=== PATIENT | female | born 1955 | race Caucasian/White ===

== ENCOUNTER 2020-08-12 18:06 | Emergency (ER) | payer SELFPAY ==
--- NOTE | 2020-08-12 18:51 | EDM.PDOC ---
ED HPI GENERAL MEDICAL PROBLEM - General Chief Complaint: Upper Extremity Injury/Pain Stated Complaint: SLIPPED ON ICE HURT RIGHT WRIST Time Seen by Provider: 08/12/20 18:49 Source of Information: Reports: Patient, RN Notes Reviewed History Limitations: Reports: No Limitations - History of Present Illness INITIAL COMMENTS - FREE TEXT/NARRATIVE: 65-year-old female presents emergency department today following a fall where she slipped on ice she had a fall on outstretched hand right side now has obvious deformity on her right wrist Right Wrist Pain Score (Numeric/FACES): 6 - Related Data Allergies Allergy/AdvReac Type Severity Reaction Status Date / Time No Known Allergies Allergy Verified 08/12/20 18:16 Home Meds: Home Meds Progesterone, Micronized [Progesterone] 300 mg PO DAILY 08/15/16 [History] Thyroid [[place] Thyroid] 45 mg PO DAILY 08/15/16 [History] Past Medical History HEENT History: Reports: Impaired Vision Other HEENT History: wears glasses Cardiovascular History: Reports: Heart Murmur Musculoskeletal History: Reports: Fracture, Gout, Osteoporosis Endocrine/Metabolic History: Reports: Hypothyroidism, Obesity/BMI 30+, Osteoporosis - Infectious Disease History Infectious Disease History: Reports: Chicken Pox, Measles, Mumps - Past Surgical History HEENT Surgical History: Reports: LASIK Endocrine Surgical History: Reports: None Musculoskeletal Surgical History: Reports: Other (See Below) Other Musculoskeletal Surgeries/Procedures:: finger surgery Social & Family History - Family History Family Medical History: No Pertinent Family History - Tobacco Use Tobacco Use Status *Q: Never Tobacco User - Caffeine Use Caffeine Use: Reports: None - Recreational Drug Use Recreational Drug Use: No Review of Systems - Review of Systems Review Of Systems: See Below Constitutional: Reports: No Symptoms Musculoskeletal: Reports: Foot Pain (Wrist pain) ED EXAM, GENERAL - Physical Exam Exam: See Below Free Text/Narrative:: Examination of the right wrist there is no obvious deformity radial pulses +2 she has limited range of motion of digits however good capillary refill ED TRAUMA EXTREMITY PROCEDURES - Joint Reduction Right Wrist Sedation: Conscious Sedation Pre-Procedure NV Status: Normal Post-Procedure NV Status: Normal Technique: Traction/Counter Traction Number of Attempts: 2 Post-Reduction Imaging: Completely Reduced Joint Reduction Complications: No - Splinting Right Upper Extremity Pre-Procedure NV Status: Normal Post-Procedure NV Status: Normal Splint Material: Fiberglass Splint Design: Sugar Tong, Gutter, Sling Applied & Form Fitted By: Provider, Nurse Provider Post-Splint Application NV Check: NV Status Normal Complications: No Course - Vital Signs Last Recorded V/S: Last Vital Signs Temp 96.1 F L 08/12/20 18:17 Pulse 77 08/12/20 19:45 Resp 16 08/12/20 18:17 BP 147/79 H 08/12/20 19:45 Pulse Ox 100 08/12/20 19:45 - Orders/Labs/Meds Orders: Active Orders 24 hr Category Date Time Status Wrist 2V Rt [CR] Stat Exams 08/12/20 20:20 Taken Wrist Comp Min 3V Rt [CR] Stat Exams 08/12/20 18:20 Taken Meds: Medications Discontinued Medications Generic Name Dose Route Start Last Admin Trade Name Freq PRN Reason Stop Dose Admin Ketorolac Tromethamine 30 mg 08/12/20 19:41 08/12/20 20:47 Toradol IVPUSH 08/12/20 19:42 30 mg ONETIME ONE Administration Propofol Confirm 08/12/20 20:37 Diprivan 20 Ml Administered 08/12/20 20:38 Dose 200 mg .ROUTE .STK-MED ONE Departure - Departure Time of Disposition: 21:04 Disposition: Home, Self-Care 01 Condition: Fair Clinical Impression: Fracture of radius, right, closed Qualifiers: Encounter type: initial encounter Radius location: head Fracture alignment: displaced Qualified Code(s): S52.121A - Displaced fracture of head of right radius, initial encounter for closed fracture - Discharge Information Instructions: Monitored Anesthesia Care, Care After, Wrist Fracture Treated With Immobilization, [id number] Referrals: PCP,None [Primary Care Provider] - Forms: ED Department Discharge Additional Instructions: Please call to the orthopedic clinic on Friday for an appointment time with Dr. Nava use ibuprofen or Tylenol for baseline pain control use hydrocodone for breakthrough pain this does have additional Tylenol in it so be mindful not to exceed 4000 mg in a 24-hour., Call or return to the emergency department worsening of symptoms Sepsis Event Note (ED) - Evaluation Sepsis Screening Result: No Definite Risk - Focused Exam Vital Signs: Vital Signs Temp Pulse Resp BP Pulse Ox 08/12/20 19:45 77 147/79 H 100 08/12/20 18:45 81 141/82 H 08/12/20 18:17 96.1 F L 80 16 139/82 99 - My Orders Last 24 Hours: My Active Orders 08/12/20 18:20 Wrist Comp Min 3V Rt [CR] Stat 08/12/20 20:20 Wrist 2V Rt [CR] Stat - Assessment/Plan Last 24 Hours: My Active Orders 08/12/20 18:20 Wrist Comp Min 3V Rt [CR] Stat 08/12/20 20:20 Wrist 2V Rt [CR] Stat Plan: Assessment Acuity = acute Site and laterality = fracture radius right closed and dislocation Etiology = fall on outstretched hand Manifestations = none Location of injury = Home Lab values = x-ray describes fracture and dislocation with post reduction films Plan Call discussed case with Dr. Nava at 1852 recommended reduction splinting follow-up in clinic next week, prescription written for hydrocodone 5/325 1 tab p.o. 3 times daily as needed total number six 1 tablet every 4-6 hours as needed This note was dictated using GIDEEN voice recognition software please call with any questions on syntax or grammar.
[2020-08-12] MEDS ORDERED: Ketorolac 30 MG/ML SDV IVPUSH ONE (19:41)
[2020-08-12 19:46] VITALS: BP 147/79; PULSE 77
[2020-08-12] MEDS ORDERED: Propofol 200 MG/20 ML SDV ONE (20:37)
--- NOTE | 2020-08-14 09:48 | CR ---
Wrist Comp Min 3V Rt, Wrist 2V Rt CLINICAL HISTORY: Pain, fall FINDINGS: There is a comminuted displaced to fracture the distal radius. There is ulnar impaction in the carpal bones. IMPRESSION: Comminuted displaced fracture of the distal radius Ulnar impaction in the carpal bones Wrist 2V Rt CLINICAL HISTORY: Postreduction FINDINGS: There has been no reduction of the distal comminuted radial fracture seen in this single view. There may be some subluxation of the triquetrum. Some of this may be positioning IMPRESSION: Limited study Postreduction distal radial fracture Possible subluxation of the triquetrum
== END 2020-08-12 22:33 | disposition home or self-care (01) ==
LOC: JP.ED 18:06
DX: S52.121A Displaced fracture of head of right radius, initial encounter for closed fracture (principal); S52.501A Unspecified fracture of the lower end of right radius, initial encounter for closed fracture; E03.9 Hypothyroidism, unspecified; E66.9 Obesity, unspecified; Z68.29 Body mass index [BMI] 29.0-29.9, adult; Z79.899 Other long term (current) drug therapy; W00.0XXA Fall on same level due to ice and snow, initial encounter
CPT/HCPCS: 25500; 25605; 73100; 73110; 96374; 99283; J1885; J2704

== ENCOUNTER 2021-02-21 13:54 | Inpatient (IN) | payer SELFPAY ==
[2021-02-21] MEDS ORDERED: Midazolam 1 MG/ML 2 ML SDV ONE ×2 (14:24→15:49)
[2021-02-21] MEDS ORDERED: Propofol 200 MG/20 ML SDV ONE (14:24)
[2021-02-21] MEDS ORDERED: fentaNYL 100 MCG/2 ML SDV ONE (14:24)
[2021-02-21] MEDS ORDERED: Bupivacaine 0.5%/EPINEPHrine 1:200,000 50 ML MDV ONE (14:26)
[2021-02-21] MEDS ORDERED: ceFAZolin 1 GM in Premix Bag 1 BAG IV ONE (14:30)
[2021-02-21] MEDS ORDERED: Lactated Ringers 1,000 ML IV ONE (14:47)
[2021-02-21 15:15] LABS: CORONAVIRUS COVID-19 NAA NEGATIVE (NEGATIVE)
[2021-02-21] MEDS ORDERED: Acetaminophen 325 MG Tab PO PRN (16:34)
[2021-02-21] MEDS ORDERED: Ondansetron 4 MG/2 ML SDV IVPUSH PRN (16:34)
[2021-02-21] MEDS ORDERED: Morphine 2 MG/ML SYRINGE IV PRN (16:34)
[2021-02-21] MEDS ORDERED: Acetaminophen/HYDROcodone 325-5 MG Tab PO PRN (16:34)
[2021-02-21] MEDS ORDERED: Acetaminophen/oxyCODONE 325-5 MG Tab PO PRN (16:39)
[2021-02-21] MEDS ORDERED: Sodium Chloride 0.9% 1,000 ML IV SCH (16:45)
[2021-02-21] MEDS ORDERED: PROGESTERONE MICRONIZED 100 MG PO SCH (21:00)
[2021-02-21] MEDS: Docusate Sodium 100 MG Cap PO SCH (22:23)
[2021-02-21] MEDS: Nozin Nasal Sanitizer NASBOTH SCH (22:36)
[2021-02-21] MEDS: ceFAZolin 1 GM in Premix Bag 1 BAG IV SCH (22:44)
[2021-02-21] MEDS: Ketorolac 30 MG/ML SDV IVPUSH PRN (22:54)
[2021-02-22] MEDS: ceFAZolin 1 GM in Premix Bag 1 BAG IV SCH ×2 (05:54→14:11)
[2021-02-22] MEDS ORDERED: Enoxaparin 30 MG/0.3 ML Syringe SUBCUT SCH (09:00)
[2021-02-22] MEDS: Docusate Sodium 100 MG Cap PO SCH (09:30)
[2021-02-22] MEDS: Nozin Nasal Sanitizer NASBOTH SCH (09:38)
[2021-02-22] MEDS: Ketorolac 30 MG/ML SDV IVPUSH PRN (11:30)
[2021-02-22 11:41] VITALS: BP 101/67; PULSE 72
--- NOTE | 2021-02-22 14:53 | PCM.DCSUM1 ---
Discharge Summary - Hospital Course HPI Initial Comments: Patient is a 65 y/o female, had ongoing L hip pain over the past month. Was seen in [place] and got an US to rule out a hernia. A different provider told her she had a musculoskeletal strain. Had been doing some therapy, but pain was not getting any better. Eventually sought another opinion with Dr. Bergeron yesterday, who got an xray which revealed a femoral neck stress fracture. Patient advised to go to [facility] for surgical fixation. However, patient has seen Dr. Nava in the past for R wrist fracture and preferred to be treated here. She arrived in waiting room of our clinic yesterday afternoon requesting Dr. Nava's service. Fracture was corrected yesterday afternoon with surgical management via 3 cannulated screws in L hip. Patient stayed overnight for pain control, therapy, and antibiotic coverage. Is doing well today and plans to discharge home this evening. Diagnosis: Stroke: No Modified [place] Scale: No Symptoms at All Modified Eric Scale Score: 0 - Discharge Data Discharge Date: 02/22/21 Discharge Disposition: Home, Self-Care 01 Condition: Good - Referral to Home Health Date of Face to Face Encounter: 02/22/21 Primary Care Physician: PCP None - Patient Summary/Data Operative Procedure(s) Performed: left hip ORIF with 3 cannulated screws Consults: Consultations 02/21/21 16:34 PT Evaluation and Treatment [CONS] Routine Please Evaluate and Treat. PT Reason for Consult: Ambulation Discharge Disposition: Home w Home Health Special Instructions: WBAT on LLE This query below is only for informational purposes and is not editable. PT Evaluation and Treatment [CONS] Routine Please Evaluate and Treat. PT Reason for Consult: Post op Ortho Surgery Hip Pending Discharge: Yes, 2- -3 days Special Instructions: Schedule first outpatient P.T. appointment 3 - 5 days post discharge This query below is only for informational purposes and is not editable. 02/21/21 16:37 OT Evaluation and Treatment [CONS] Routine Please Evaluate and Treat. OT Reason for Consult: ADL's Special Instructions: Status post Hip Surgery This query below is only for informational purposes and is not editable. Hospital Course: Patient is a pleasant 65 y/o female, presented to ortho clinic waiting room with xrays from outside facility showing a femoral neck fracture. Dr. Bergeron suggested she go to [place] for surgical fixation, but patient was seen by Dr. Nava for a right wrist fracture this past winter and preferred to have surgical management here. Patient had pain in left leg for the past month, but pushed through the pain and resumed normal activities. Has been weight bearing, jumping on her mini-trampoline, and spending some time on the inversion table. Patient has PMHx significant for osteoporosis. Had R wrist fracture late last year and presents now with left femoral neck stress fracture. Patient reports she is planning to get a repeat DEXA scan this fall. Has been trying natural remedies and supplements to improve her osteoporosis, including an Algae supplement. Does use vitamin D and Collagen powder. Xrays were pushed to our PACs system and reviewed. Dr. Nava recommended surgical fixation. Patient underwent a left hip ORIF repair with 3 cannulated screws on 02/21/21. Tolerated surgery well with no complications. Had no acute events overnight. Remained hemodynamically stable throughout her stay. Patient was a bit dehydrated from a 13-day master cleanse. Blood pressures have been running on the low side, but denied dizziness, fatigue, nor lightheadedness. POD#1 HgB at 11.2. Patient has been asymptomatic with this as well. Pain has been well controlled throughout hospital stay with [place] and Toradol. Patient denied nausea or emesis. Has only been eating clear liquids and oranges coming off her master cleanse, but tolerating this diet well. Patient participated in PT and OT while in the hospital. Patient has been ambulating up to 100 ft with FWW independently. Demonstrates appropriate gait pattern. Is able to transfer independently from chair to bed. Bilateral LE exercises performed, handouts with these exercises were provided to patient. Worked with OT, demonstrated ability to complete ADLs with minimal assistance. Does have son staying with her upon discharge from hospital. Exam: Ambulatory with mild antalgic gait with FWW. Left hip dressing dry and intact. No surrounding erythema, drainage, nor warmth to touch of left hip. Mild ecchymosis present along anterior and lateral left thigh. No significant edema of L LE. Left calf is soft and supple. Tibialis posterior, 2+. Dorsiflexion: 4+/5. Plantar flexion: 5/5. - Patient Instructions Diet: Usual Diet as Tolerated Activity: Apply Ice, Full Weight Bearing Driving: Do Not Drive Showering/Bathing: Shower in AM Wound/Incision Care: Keep Operative Site/Wound Site Clean and Dry Notify Provider of: Fever, Increased Pain, Swelling and Redness, Drainage - Discharge Plan *PRESCRIPTION DRUG MONITORING PROGRAM REVIEWED*: Not Applicable *COPY OF PRESCRIPTION DRUG MONITORING REPORT IN PATIENT IVORY: Not Applicable Home Medications: Home Meds Progesterone,Micronized [Prometrium] 300 mg PO BEDTIME 11/02/20 [History] Thyroid,Pork [[employer] Thyroid] 60 mg PO DAILY 11/02/20 [History] Aspirin 1 BID 02/22/21 [History] Oxygen Therapy Mode: Room Air Patient Handouts: Hip Fracture Treated With ORIF, Care After, Preventing Problems After Surgery, Preventing Constipation After Surgery Referrals: Evens Nava MD [Physician] - 03/08/21 2:30 pm - Discharge Summary/Plan Comment DC Time >30 min.: No Discharge Summary/Plan Comment: * Anticipate discharge to home today, son will be staying with patient upon discharge. * Education provided to patient on warning signs of SSIs and DVT/VTEs. Patient expressed understanding of return precautions. * Educated to take 1 aspirin BID for DVT/VTE prophylaxis. * Patient refused pain medication upon discharge, notes she will use her ibuprofen at home if she needs it. If she gets home and decides she needs something stronger, will call clinic. Advised that we do not refill pain medications after noon on Friday, so she will need to call prior if she needs pain medication over the weekend. * Physical therapy order faxed to [facility] for L LE, patient is currently working with [facility] (DPT) for R wrist and would like to do L LE therapy there. * Patient may continue to WBAT on LLE with walker for support. * Patient to follow up with orthopedics in 2 weeks. Encouraged to call sooner if any questions or concerns arise. Patient expressed understanding. - General Info Functional Status: Reports: Pain Controlled, Tolerating Diet, Ambulating (with FWW ), Urinating - Review of Systems General: Reports: No Symptoms HEENT: Reports: Post Nasal Drip, Rhinitis Pulmonary: Reports: No Symptoms Cardiovascular: Reports: No Symptoms Gastrointestinal: Reports: No Symptoms Genitourinary: Reports: No Symptoms Musculoskeletal: Reports: Hand Pain (R wrist ), Leg Pain (L ), Joint Pain (L hip ) Skin: Reports: Bruising (Ecchymosis along anterior and lateral left thigh) Neurological: Reports: No Symptoms Psychiatric: Reports: No Symptoms - Patient Data Vitals - Most Recent: Last Vital Signs Temp 98.1 F 02/22/21 11:40 Pulse 72 02/22/21 11:40 Resp 16 02/22/21 11:40 BP 101/67 02/22/21 11:40 Pulse Ox 99 02/22/21 11:40 Weight - Most Recent: 166 lb I&O - Last 24 hours: Intake & Output 02/21/21 02/22/21 02/22/21 22:59 06:59 14:59 Intake Total 1125 1784 240 Balance 1125 1784 240 Lab Results - Last 24 hrs: Laboratory Results - last 24 hr 02/21/21 02/21/21 02/21/21 Range/Units 14:25 14:33 14:33 WBC 3.4 L (4.5-11.0) K/uL RBC 4.35 (3.30-5.50) M/uL Hgb 14.3 (12.0-15.0) g/dL Hct 41.4 (36.0-48.0) % MCV 95 (80-98) fL MCH 33 H (27-31) pg MCHC 35 (32-36) % Plt Count 261 (150-400) K/uL Neut % (Auto) 54.3 (36-66) % Lymph % (Auto) 33.0 (24-44) % [place] % (Auto) 11.2 H (2-6) % Eos % (Auto) 0.6 L (2-4) % Baso % (Auto) 0.9 (0-1) % Sodium 140 (140-148) mmol/L Potassium 3.7 (3.6-5.2) mmol/L Chloride 102 (100-108) mmol/L Carbon Dioxide 23 (21-32) mmol/L Anion Gap 14.8 H (5.0-14.0) mmol/L BUN 2 L (7-18) mg/dL Creatinine 0.8 (0.6-1.0) mg/dL Est Cr Clr Drug Dosing 56.93 mL/min Estimated GFR (MDRD) > 60 (>60) Glucose 95 (74-106) mg/dL Calcium 9.4 (8.5-10.1) mg/dL Influenza Type A RNA Negative (NEGATIVE) RSV RNA (INAAT) Negative (NEGATIVE) Influenza Type B RNA Negative (NEGATIVE) SARS-CoV-2 RNA (ELIZABETH) Negative (NEGATIVE) 02/22/21 Range/Units 05:13 WBC 4.5 (4.5-11.0) K/uL RBC 3.47 (3.30-5.50) M/uL Hgb 11.2 L D (12.0-15.0) g/dL Hct 34.2 L (36.0-48.0) % MCV 99 H (80-98) fL MCH 32 H (27-31) pg MCHC 33 (32-36) % Plt Count 228 (150-400) K/uL Neut % (Auto) (36-66) % Lymph % (Auto) (24-44) % [place] % (Auto) (2-6) % Eos % (Auto) (2-4) % Baso % (Auto) (0-1) % Sodium (140-148) mmol/L Potassium (3.6-5.2) mmol/L Chloride (100-108) mmol/L Carbon Dioxide (21-32) mmol/L Anion Gap (5.0-14.0) mmol/L BUN (7-18) mg/dL Creatinine (0.6-1.0) mg/dL Est Cr Clr Drug Dosing mL/min Estimated GFR (MDRD) (>60) Glucose (74-106) mg/dL Calcium (8.5-10.1) mg/dL Influenza Type A RNA (NEGATIVE) RSV RNA (INAAT) (NEGATIVE) Influenza Type B RNA (NEGATIVE) SARS-CoV-2 RNA (ELIZABETH) (NEGATIVE) Med Orders - Current: Current Medications Acetaminophen (Acetaminophen 325 Mg Tab) 650 mg PO Q4H PRN PRN Reason: Pain/Fever Hydrocodone Bitart/Acetaminophen (Acetaminophen/Hydrocodone 325-5 Mg Tab) 1 tab PO Q4H PRN PRN Reason: Pain (mild 1-3) Last Admin: 02/21/21 20:49 Dose: 1 tab Documented by: Bandage/Support Products (Nozin Nasal Manager Route) 1 applic NASBOTH BID MARTHA Stop: 02/28/21 21:01 Last Admin: 02/22/21 09:38 Dose: 1 applic Documented by: Docusate Sodium (Docusate Sodium 100 Mg Cap) 100 mg PO BID [facility] Last Admin: 02/22/21 09:30 Dose: Not Given Documented by: Enoxaparin Sodium (Enoxaparin 30 Mg/0.3 Ml Syringe) 30 mg SUBCUT DAILY [facility] Last Admin: 02/22/21 09:37 Dose: 30 mg Documented by: Sodium Chloride (Normal Saline) 1,000 mls @ 125 mls/hr IV ASDIRECTED [facility] Last Admin: 02/21/21 23:46 Dose: 125 mls/hr Documented by: Ketorolac Tromethamine (Ketorolac 30 Mg/Ml Sdv) 30 mg IVPUSH Q8H PRN PRN Reason: Breakthrough Pain Stop: 02/26/21 16:41 Last Admin: 02/22/21 11:30 Dose: 30 mg Documented by: Morphine Sulfate (Morphine 2 Mg/Ml Syringe) 1 mg IV Q1H PRN PRN Reason: Breakthrough Pain Non-Formulary Medication (Progesterone,Micronized [Prometrium]) 300 mg PO BEDTIME [facility] Ondansetron HCl (Ondansetron 4 Mg/2 Ml Sdv) 4 mg IVPUSH Q6H PRN PRN Reason: Nausea/Vomiting Oxycodone/Acetaminophen (Acetaminophen/Oxycodone 325-5 Mg Tab) 1 - 2 tab PO Q4H PRN PRN Reason: Pain Discontinued Medications Bupivacaine HCl/Epinephrine Bitart (Bupivacaine 0.5%/Epinephrine 1:200,000 50 Ml Mdv) Confirm Administered Dose 50 ml .ROUTE .STK-MED ONE Stop: 02/21/21 14:27 Last Admin: 02/21/21 16:23 Dose: 20 ml Documented by: Fentanyl (Fentanyl 100 Mcg/2 Ml Sdv) Confirm Administered Dose 100 mcg .ROUTE .STK-MED ONE Stop: 02/21/21 14:25 Cefazolin Sodium/Dextrose 1 gm (/ Premix) 50 mls @ 100 mls/hr IV ONETIME ONE Stop: 02/21/21 14:59 Last Admin: 02/21/21 14:49 Dose: 100 mls/hr Documented by: Lactated Ringer's (Ringers, Lactated) 1,000 mls @ 999 mls/hr IV BOLUS ONE Stop: 02/21/21 15:47 Last Admin: 02/21/21 14:53 Dose: 999 mls/hr Documented by: Cefazolin Sodium/Dextrose 1 gm (/ Premix) 50 mls @ 200 mls/hr IV Q8H [facility] Stop: 02/22/21 14:14 Last Admin: 02/22/21 14:11 Dose: 200 mls/hr Documented by: Midazolam HCl (Midazolam 1 Mg/Ml 2 Ml Sdv) Confirm Administered Dose 2 mg .ROUTE .STK-MED ONE Stop: 02/21/21 14:25 Midazolam HCl (Midazolam 1 Mg/Ml 2 Ml Sdv) Confirm Administered Dose 2 mg .ROUTE .STK-MED ONE Stop: 02/21/21 15:50 Propofol (Propofol 200 Mg/20 Ml Sdv) Confirm Administered Dose 200 mg .ROUTE .STK-MED ONE Stop: 02/21/21 14:25 - Exam General: Reports: Alert, Oriented, Cooperative, No Acute Distress Extremities: Normal Capillary Refill, Joint Swelling, Leg Pain Skin: Reports: Dry, Intact Wound/Incisions: Reports: Dressing Dry and Intact, No Drainage Neurological: Reports: No New Focal Deficit Psy/Mental Status: Reports: Alert, Normal Affect, Normal Mood
--- NOTE | 2021-03-07 20:14 | OR ---
DATE OF PROCEDURE: 02/21/2021 SURGEON: Evens Nava MD PREOPERATIVE DIAGNOSIS: Nondisplaced left femoral neck fracture, pathologic, secondary to osteoporosis. POSTOPERATIVE DIAGNOSIS: Nondisplaced left femoral neck fracture, pathologic, secondary to osteoporosis. PROCEDURE PERFORMED: Cannulated screw fixation of left femoral neck fracture. ANESTHESIA: Spinal with sedation. INDICATIONS: Lucia is a 65-year-old female who has been having left hip pain for the past few weeks. This initially occurred while getting up from a bent-over position when gardening. She has had difficulty with weightbearing. She eventually had x-rays done today which show a fracture of the femoral neck with slight distraction on the superior neck consistent with insufficiency fracture secondary to osteoporosis. She is taken to the operating room now for fixation of the fracture to prevent displacement. Risks, benefits, and potential complications of the procedure were discussed. DESCRIPTION OF PROCEDURE: After adequate anesthesia was obtained, the patient was placed on the fracture table. The left hip and leg were prepped and draped in a sterile fashion. A small incision was made just distal to the trochanter and carried down through the subcutaneous tissues, and the IT band was split. A guidepin was placed across the fracture into the femoral head and position confirmed with fluoroscopy on AP and lateral images. Two additional guidepins were then placed in a triangular configuration. These were measured. A drill was used in the lateral cortex and cannulated screws then placed over the guidepins. Final position was confirmed using image intensifier on AP and lateral images. The wound was irrigated. The skin was closed with 2-0 Vicryl and a running 3-0 Monocryl, and Steri- Strips were applied. Blood loss was minimal. There were no complications. She was taken from the operating room in stable condition. Evens Nava MD /[id number]
== END 2021-02-22 16:45 | disposition home or self-care (01) | DRG 482 ==
LOC: JP.MS 13:54
PROVIDERS: ADMIT Specialist; ATTEND Specialist
PROC: 0QS734Z Reposition Left Upper Femur with Internal Fixation Device, Percutaneous Approach (ICD-10-PCS; principal; 2021-02-21)
DX: M84.359A Stress fracture, hip, unspecified, initial encounter for fracture (principal); M81.0 Age-related osteoporosis without current pathological fracture; E86.0 Dehydration
CPT/HCPCS: 0241U; 36415; 76000; 80048; 85025; 85027; 97110-GP; 97116-GP; 97161-GP; 97165-GO; 97535-GO; A9270-GY; C1713; C1769; J0690; J1650; J1885; J2250; J2704; J3010; J3490; J7030; J7120

== ENCOUNTER 2023-03-23 17:38 | Emergency (ER) | payer MEDICARE, BC ==
[2023-03-23] MEDS ORDERED: HYDROmorphone 1 MG/ML Syringe IM ONE (18:00)
[2023-03-23 19:35] VITALS: BP 138/79; PULSE 88
== END 2023-03-23 19:35 | disposition home or self-care (01) ==
LOC: JP.ED 17:38
DX: S42.292A Other displaced fracture of upper end of left humerus, initial encounter for closed fracture (principal); E03.9 Hypothyroidism, unspecified; E66.9 Obesity, unspecified; Z68.36 Body mass index [BMI] 36.0-36.9, adult; W19.XXXA Unspecified fall, initial encounter
CPT/HCPCS: 73020; 96372; 99284; J1170